=== PATIENT | male | born 1985 | race African-American/Black ===

== ENCOUNTER 2023-06-15 22:09 | Emergency (ER) | payer SELFPAY ==
[2023-06-15] VITALS (9 sets, daily range): BP systolic 103–130; BP diastolic 70–89; PULSE 62–83; RESP 13–18; TEMP 36.4–36.9; O2SAT 96–100
--- NOTE | ~2023-06-15 | XR_ITS ---
EXAM: XR shoulder RT min 2V DATE: 06/15/2023 23:18 HISTORY: Post reduction . COMPARISON: Same date at 10:22 PM. FINDINGS/IMPRESSION: Successful interval right shoulder reduction. No fracture detected. Reviewed, dictated and finalized at location K. [employer]
--- NOTE | ~2023-06-15 | XR_ITS ---
EXAM: XR shoulder RT min 2V DATE: 06/15/2023 22:25 HISTORY: suspect dislocation . COMPARISON: None available. FINDINGS: Examination mildly limited by quantum mottle and degree of penetration. Normal mineralizati on. No fracture. Anterior right glenohumeral dislocation. No lytic or blastic lesion. Joint spaces ar e maintained. No erosion or periosteal change. Soft tissues within normal limits. IMPRESSION: Anterior right glenohumeral dislocation. Reviewed, dictated and finalized at location K. [facility] [employer]
--- NOTE | 2023-06-15 23:07 | ED.GENADULT ---
HPI - General Adult General Chief complaint: Extremity Injury, Upper Stated complaint: dislocated shoulder Time Seen by Provider: 06/15/23 22:14 History of Present Illness HPI narrative: This is a 38-year-old male presenting ED with chief complaint of shoulder pain. patient tried to throw a rag over his shoulder and then felt pain in shoulder was unable to lift it. Patient is dislocated shoulder 1 time the past. patient has pain but no weakness to the and Related Data Allergies Allergy/AdvReac Type Severity Reaction Status Date / Time No Known Allergies Allergy Verified 06/15/23 22:16 Exam Narrative: APPEARANCE: No apparent distress. Head: atraumatic. EYES: EOMI, NOSE: Atraumatic NECK: Trachea midline RESPIRATORY: No increased rate of breathing CARDIOVASCULAR: RRR, ABDOMINAL: Non-distended MUSCULOSKELETAl: focal exam of the right arm showed a deformity of the shoulder, no numbness over the lateral deltoid, Radian ulnar median nerve strength intact. Pulses +2 cap refill less than 2 seconds NEURO: Alert. Moving 4/4 extremities SKIN:: Warm, dry. Normal color PSYCHIATRIC: Normal affect Course Vital Signs Vital signs: Vital Signs Temperature 98.1 F 06/15/23 22:08 Pulse Rate 72 06/15/23 22:08 Respiratory Rate 16 06/15/23 22:08 Blood Pressure 130/89 06/15/23 22:08 Pulse Oximetry 99 06/15/23 22:08 Oxygen Delivery Room Air 06/15/23 22:08 Temperature 98.4 F 06/15/23 23:33 Pulse Rate 63 06/15/23 23:33 Respiratory Rate 15 06/15/23 23:33 Blood Pressure 109/78 06/15/23 23:33 Pulse Oximetry 100 06/15/23 23:33 Oxygen Delivery Room Air 06/15/23 23:33 Medical Decision Making [facility] Narrative Medical decision making narrative: -Course: 38-year-old presenting with shoulder dislocation. Shoulder was reduced. Neurovascularly intact pre and post. Given Ortho follow-up. -DDX includes but is not limited to: Shoulder dislocation, humerus fracture -Social determinants of health: unemployed, . denies drugs/etoh -Independent interpretation of studies: initial x-ray showed dislocation. Second x-ray showed reduction. -Interventions:Propofol 60mg -> 30mg -Shared decision making / Disposition: Discharged -RX: Motrin Tylenol Vital Signs Vital Signs: Vital Signs Temperature 98.1 F 06/15/23 22:08 Pulse Rate 72 06/15/23 22:08 Respiratory Rate 16 06/15/23 22:08 Blood Pressure 130/89 06/15/23 22:08 Pulse Oximetry 99 06/15/23 22:08 Oxygen Delivery Room Air 06/15/23 22:08 Temperature 98.4 F 06/15/23 23:33 Pulse Rate 63 06/15/23 23:33 Respiratory Rate 15 06/15/23 23:33 Blood Pressure 109/78 06/15/23 23:33 Pulse Oximetry 100 06/15/23 23:33 Oxygen Delivery Room Air 06/15/23 23:33 Discharge Plan Discharge Clinical Impression: Dislocated shoulder Patient Disposition: Home, Self-Care Condition: Stable Instructions: Antibiotic Form, Shoulder Dislocation (ED), Moderate Sedation (ED) Additional Instructions: please use Motrin and Tylenol for pain. Please stay in the shoulder immobilizer until you are evaluated by Orthopedic surgery. Please follow-up with the doctor listed below. Prescriptions: New ibuprofen 800 mg tablet 800 mg PO TID PRN (Reason: pain) 7 Days Qty: 21 0RF acetaminophen 500 mg tablet 1,000 mg PO TID PRN (Reason: wilfredo) 7 Days Qty: 42 0RF Follow-up/Referrals: Kvng Rivera MD [Physician] - 1 Week (Shoulder dislocation)
[2023-06-15] MEDS: SODIUM CHLORIDE 0.9% IV 1,000 ML 999 ML IV CONT (23:09)
[2023-06-16 00:01] VITALS: BP 104/69; PULSE 58; RESP 15; O2SAT 99
[2023-06-16 00:15] VITALS: BP 112/70; PULSE 65; RESP 15; O2SAT 99
--- NOTE | 2023-06-22 18:58 | ED.GENADULT ---
HPI - General Adult General Chief complaint: Extremity Injury, Upper Stated complaint: dislocated shoulder Time Seen by Provider: 06/15/23 22:14 Related Data Allergies Allergy/AdvReac Type Severity Reaction Status Date / Time No Known Allergies Allergy Verified 06/15/23 22:16 Course Vital Signs Vital signs: Vital Signs Temperature 98.1 F 06/15/23 22:08 Pulse Rate 72 06/15/23 22:08 Respiratory Rate 16 06/15/23 22:08 Blood Pressure 130/89 06/15/23 22:08 Pulse Oximetry 99 06/15/23 22:08 Oxygen Delivery Room Air 06/15/23 22:08 Temperature 98.4 F 06/15/23 23:33 Pulse Rate 65 06/16/23 00:15 Respiratory Rate 15 06/16/23 00:15 Blood Pressure 112/70 06/16/23 00:15 Pulse Oximetry 99 06/16/23 00:15 Oxygen Delivery Room Air 06/15/23 23:33 Medical Decision Making Vital Signs Vital Signs: Vital Signs Temperature 98.1 F 06/15/23 22:08 Pulse Rate 72 06/15/23 22:08 Respiratory Rate 16 06/15/23 22:08 Blood Pressure 130/89 06/15/23 22:08 Pulse Oximetry 99 06/15/23 22:08 Oxygen Delivery Room Air 06/15/23 22:08 Temperature 98.4 F 06/15/23 23:33 Pulse Rate 65 06/16/23 00:15 Respiratory Rate 15 06/16/23 00:15 Blood Pressure 112/70 06/16/23 00:15 Pulse Oximetry 99 06/16/23 00:15 Oxygen Delivery Room Air 06/15/23 23:33 Discharge Plan Discharge Clinical Impression: Dislocated shoulder Patient Disposition: Home, Self-Care Condition: Stable Instructions: Antibiotic Form, Shoulder Dislocation (ED), Moderate Sedation (ED) Additional Instructions: please use Motrin and Tylenol for pain. Please stay in the shoulder immobilizer until you are evaluated by Orthopedic surgery. Please follow-up with the doctor listed below. Prescriptions: New ibuprofen 800 mg tablet 800 mg PO TID PRN (Reason: pain) 7 Days Qty: 21 0RF acetaminophen 500 mg tablet 1,000 mg PO TID PRN (Reason: wilfredo) 7 Days Qty: 42 0RF Follow-up/Referrals: Kvng Rivera MD [Physician] - 1 Week (Shoulder dislocation)
== END 2023-06-16 00:38 | disposition home or self-care (01) ==
LOC: ANHED 06-16 00:11
PROVIDERS: Emergency Provider Emergency Medicine
DX: S43.014A Anterior dislocation of right humerus, initial encounter (principal); X50.9XXA Other and unspecified overexertion or strenuous movements or postures, initial encounter
CPT/HCPCS: 23650; 73030; 99285; J7030